=== PATIENT | female | born 2000 | race American Indian/Alaskan Native ===

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

== ENCOUNTER → 2019-01-21 | Outpatient (CLI) | payer OTHER ==
[~2019-01-21] MED LIST changes: +Adipex-P37.5 MG PO; +Depo-Prove400 MG/1 M IM
[2019-01-21 11:29] LABS: U Amphetamine Screen Not Detected; U Barbituate Screen Not Detected; U Benzodiazapine Screen Not Detected; U Buprenorphine Screen Not Detected; U Cannabinoids Screen Not Detected; U Cocaine Screen Not Detected; U Methadone Screen Not Detected; U Methamphetamine Screen Not Detected; U Opiates Screen Not Detected; U Oxycodone Screen Not Detected; U Phencyclidine Screen Not Detected; U Propoxyphene Screen Not Detected
== END | disposition home or self-care (01) ==
LOC: LAB FUT 01-20 08:00 → LAB UCHC 10:16 → LAB SHORT 10:16
PROVIDERS: Surgery
DX: G47.33 Obstructive sleep apnea (adult) (pediatric) (principal); K21.9 Gastro-esophageal reflux disease without esophagitis; M25.579 Pain in unspecified ankle and joints of unspecified foot; M54.9 Dorsalgia, unspecified; E66.09 Other obesity due to excess calories; Z68.43 Body mass index [BMI] 50.0-59.9, adult

== ENCOUNTER 2021-02-18 21:58 | Emergency (ER) | payer SELFPAY ==
[~2021-02-18] VITALS: Ht 162.6 cm; Wt 131.5 kg
[2021-02-18] MEDS ORDERED: ONDA4ODT MM (23:59)
== END 2021-02-19 00:51 | disposition home or self-care (01) ==
LOC: ER 21:58
DX: U07.1 COVID-19 (principal)
CPT/HCPCS: 96361; 96374; 99284-25; A9270; J2405; J7030

== ENCOUNTER → 2024-10-14 | Outpatient (CLI) | payer OTHER | LOC: LAB 08:10 → LAB SHORT 08:10 | PROVIDERS: Physician Assistant | DX: Z01.419 Encounter for gynecological examination (general) (routine) without abnormal findings (principal) | CPT/HCPCS: G0123 ==